=== PATIENT | female | born 1925 | race Caucasian/White ===

== ENCOUNTER 2017-09-12 15:31 | Inpatient (IN) | payer MEDICARE, OTHER ==
[~2017-09-12] VITALS: Ht 165.1 cm; Wt 85.9 kg
[~2017-09-12 15:31] MED LIST: AEROECLIPSE II1 EACH MISC; ASPIR 8181 MG PO; AUGMENTIN 875-1 EACH PO; BENICAR20 MG PO; BENZONATATE200 MG PO; CELEBREX200 MG PO; CEPACOL SORE T1 EAC5 MM; COUMADIN3 MG PO; DAILY VITAMIN1 EAC2 PO; EFFER-K 20 MEQ20 MEQ PO; FAMOTIDINE20 MG PO; FLUTICASONE PRO16 GM NAS; GABAPENTIN300 MG PO; GUAIFENESIN-CODE5 ML PO; IPRAT-ALBUT 0.5-3 ML INH; IPRATROPIU0.2 MG/1 M INH; LASIX40 MG PO; LEVOTHROID125 MCG PO; LOSARTAN POTASS50 MG PO; MAG-OXIDE400 MG PO; MELATONIN1 MG PO; MIRALAX17 GM PO; MIRAPEX0.5 MG PO; MUCINEX100 MG PO; MULTI-DAY VITA1 EACH PO; NEURONTIN300 MG PO; NORCO 5-325 TA1 EACH PO; OLMESARTAN MEDO20 MG PO; POTASSIUM CHLO20 ME1 PO; PRILOSEC20 MG PO; RESTORIL15 MG PO; SERTRALINE HCL25 MG PO; SYNTHROID125 MCG PO; TEMAZEPAM15 MG PO; TORSEMIDE20 MG PO; WARFARIN SODIUM5 MG PO; ZOLOFT50 MG PO
--- NOTE | 2017-09-12 16:00 | NUR ---
89 YEAR OLD FEMALE PATIENT ADMITTED TO CCU DIRECT ADMIT ISRAEL W/C WITH DX OF HYPO NA/HYPO K. PATIEN HAS HD AMS OVER THE LAST WEEK. HAS FALLEN TWICE OVER PAST WEEK AND HALF. IS AWARE OF PERSON, AND PLACE. DAUGHTER IS WITH PATIENT. ADMISSION PROCESS STARTED.
--- NOTE | 2017-09-12 16:50 | NUR ---
O2 APPLIED SAT AT TIME IN HIGH 80'S.
[2017-09-12] MEDS ORDERED: GABAPENTIN300 MG PO (16:58)
[2017-09-12] MEDS ORDERED: MELATONIN3 MG PO (16:59)
[2017-09-12] MEDS ORDERED: TORSEMIDE20 MG PO (17:00)
[2017-09-12] MEDS ORDERED: METOLAZONE5 MG PO (17:00)
--- NOTE | 2017-09-12 17:45 | EKG ---
[facility] [address] [facility] [place] [address] Signed Atrial fibrillation with premature ventricular or aberrantly conducted complexes Moderate voltage criteria for LVH, may be normal variant Nonspecific ST abnormality Abnormal ECG When compared with ECG of 10-DEC-2016 16:13, Atrial fibrillation has replaced Sinus rhythm QRS duration has increased Non-specific change in ST segment in Inferior leads T wave inversion more evident in Inferior leads T wave amplitude has decreased in Anterolateral leads Confirmed by ARTI HUFFMAN MD ([id number]) on 09/12/2017 5:45:36 PM Electronically Signed By: ARTI HUFFMAN MD 09/12/17 1745 PATIENT NAME: BERE MACE Electrocardiogram DATE OF : [birth year] PHYSICIAN: ARTI HUFFMAN MD REPORT #: [id number] REPORT IS CONFIDENTIAL AND NOT TO BE RELEASED WITHOUT AUTHORIZATION
--- NOTE | 2017-09-12 17:51 | NUR ---
UP TO COMMODE FOR THIRD TIME SINCE ADMIT. HAS SOME DIZZINESS WITH MOVEMENT. C/O BURNING AT IV SITE. IV KCL DECREASED TO 75 ML/HR.
--- NOTE | 2017-09-12 17:53 | NUR ---
Medications reconciled using PCP chart notes
--- NOTE | 2017-09-12 18:26 | NUR ---
UP TO COMMODE. DENIES BURNING WITH URINATION. IS UNSTEADY ON FEET.
--- NOTE | 2017-09-12 18:40 | NUR ---
converted to nsr from afib.
--- NOTE | 2017-09-12 19:03 | NUR ---
IV SITE CONT TO BURN. DR. HUFFMAN AWARE. IV K TO 60 ML/HR.
--- NOTE | 2017-09-12 19:03 | NUR ---
REPORT TO NEXT SHIFT.
--- NOTE | 2017-09-12 20:05 | NUR ---
PT CONT TO C/O ARM BURNING. ARM WRAPPED IN WARM BLANKET AND AND KCL DILUTED AT SITE BY ADDING MAINTENENCE NS. PT THEN GOT UP TO BSC TO VOID AND HAS NO LONGER C/O ARM HURTING. ABLE TO GET UP TO BSC WITH 1 PERSON ASSIST.
--- NOTE | 2017-09-12 20:42 | NUR ---
VOIDING FREQ, BLADDER SCANNED POST VOID FOR 418. HAS HX OF URINARY RETENTION. WILL WATCH.
--- NOTE | 2017-09-12 21:37 | NUR ---
DR HUFFMAN CALLED RE LABS. GIVEN UPDATE ON PT.
--- NOTE | 2017-09-12 22:32 | NUR ---
PT SITTING AT EDGE OF BED DOING PUZZLES. NO C/O EXCEPT BEING BORED.
--- NOTE | 2017-09-12 23:40 | NUR ---
PT HAD BEEN IN RECLINER SINCE ABOUT 2249, STATES IS READY TO GO TO BED. PT THEN MOTIONED TO BED AND ASKED IF IT WAS HERS.SOMETIMES WILL RESPOND SLOWLY TO QUESTIONS. ON COMMODE ON WAY BACK TO BED AND PT VOIDED 100ML. BLADDER SCANNED FOR 529ML.16 F LOWERY CATH INSERTED WITH RETURN OF DILUTE YELLO URINE. PT'S GAIT IS SLOW AND SHUFFLING AND USES FURNITURE TO STEADY SELF.
--- NOTE | 2017-09-13 02:15 | NUR ---
PT NOTED TO BE STARTING TO SIT UP. THOUGHT SHE NEEDED TO GET UP TO VOID. REMINDED OF CATHETER. PT STATES IS NOT SLEEPING. GIVEN 500MG TYLENOL PO FOR RELAXATION. LAB DRAWN.
--- NOTE | 2017-09-13 03:26 | NUR ---
DR HUFFMAN CALLED RE LABS. WILL GIVE KCL 40MEQ IV PREMIXED EARLIER BY PHARMACY.
--- NOTE | 2017-09-13 03:46 | NUR ---
NO SLEEPING, OCC THINKS NEED TO GET UP TO VOID, REMINDED OF CATHETER. GIVEN HOT COCOA.
--- NOTE | 2017-09-13 04:55 | NUR ---
CONT TO BE AWAKE, LOOKING AT CELL PHONE BUT NOT ABLE TO USE IT AT THIS TIME. STATES IS NOT GOING TO CALL ANYONE. KCL CONT TO INFUSE.
--- NOTE | 2017-09-13 05:37 | NUR ---
ASKING WHAT TIME THEY SERVE DINNER HERE. 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 GIVEN PUDDING AND CRACKERS SNACK. STATES IS NOT THE LEAST BIT SLEEPY.
--- NOTE | 2017-09-13 07:30 | NUR ---
BEDSIDE REPORT RECIEVED. DENIES PAIN. LOWERY CATH PATENT WITH CLEAR YELLOW URINE. PATIENT IS SITTING IN CHAIR.
--- NOTE | 2017-09-13 09:00 | NUR ---
TOOK BREAKFAST WELL. DENEIS NAUSEA. TO COMMODE TO PASS FLATUS. PATIENT STATES SHE FEELS CONSTIPATED. WILL TALK WITH DR. HUFFMAN ABOUT THIS. Baltazar ALEXANDER INFUSED. IVF INFUSING AT 60 ML HR.
--- NOTE | 2017-09-13 09:30 | NUR ---
DR. HUFFMAN HERE TO SEE PATIENT. FLUID RESTRICTIONS ORDERED. TALKED WITH PATIENT ABOUT THIS. FLUIDS TAKEN FROM BEDSIDE.
--- NOTE | 2017-09-13 11:23 | NUR ---
WORKING WITH PHYS THERAPY.
--- NOTE | 2017-09-13 13:16 | NUR ---
REMAINS IN CHAIR, VISITING WITH DAUGHTER.
--- NOTE | 2017-09-13 15:10 | NUR ---
TO SHOWER VIA SHOWER CHAIR. TOLERATED SHOWER WELL.
--- NOTE | 2017-09-13 18:15 | NUR ---
LOWERY CATH DC'D PER ORDERS AND EMPTIED FOR 750 ML OF CLEAR YELLOW URINE.
--- NOTE | 2017-09-13 18:58 | NUR ---
TOOK DINNER WELL. RESTLESS AT TIMES.
--- NOTE | 2017-09-13 19:25 | NUR ---
REPORT TO NEXT SHIFT. TRANSFERRED TO BED, BED ALARM IS ON.
--- NOTE | 2017-09-13 20:07 | NUR ---
PT AWAKE, ALERT BUT DISORIENTED TO PLACE AND EVENT. UP TO BSC TO PASS GAS AND VOID. REQUIRES MINIMAL ASSISTANCE GETTING OOB. STATES IS NOT TIRED.
--- NOTE | 2017-09-13 21:40 | NUR ---
PT HAS BEEN VOIDING Q 30MIN SINCE 1999. DR HUFFMAN CALLED RE LABS.
--- NOTE | 2017-09-13 23:45 | NUR ---
HAS BEEN UP IN CHAIR SINCE 2129. HAD INSISITED NEEDED TO GET DRESSED. CALMED AFTER GETTING TO CHAIR. MELATONIN GIVEN 2314. PT TO COMMODE TO VOID AND HAVE SMALL BM.
--- NOTE | 2017-09-14 00:10 | NUR ---
IN BED, LAB IN TO DRAW BLOOD.
--- NOTE | 2017-09-14 01:26 | NUR ---
UP TO BSC TO VOID. WHEN VOIDING AT TIMES VOIDS FAIR AMT THIS TIME 50ML. IV SITE NOTED TO BE LEAKING, DC'D AND REPLACED. PT DENIES NEED TO VOID AT THIS TIME.
--- NOTE | 2017-09-14 01:31 | NUR ---
DR HUFFMAN CALLED WITH LABS. WILL GIVEN 40MEQ KCL PO NEXT TIME AWAKE.
--- NOTE | 2017-09-14 03:42 | NUR ---
PT SLEPT FOR ABOUT 1 HR. UP TO COMMODE THEN SAT ON EDGE OF BED AND NOW TO CHAIR. PT WANTED TO GO OUTSIDE AND DID NOT KNOW WAS IN THE HOSPITAL. WANTS TO GET DRESSED. EXPLAINED DAUGHTER TOOK CLOTHES HOME. IN CHAIR LOOKING AT MAGAZINE.
--- NOTE | 2017-09-14 05:48 | NUR ---
PT SLEPT FOR ABOUT 1HR IN CHAIR. UP TO VOID, BACK TO CHAIR.
--- NOTE | 2017-09-14 06:12 | NUR ---
DR HUFFMAN CALLED RE LABS. WILL GIVE 1,200ML D5 OVER 90MIN.
--- NOTE | 2017-09-14 06:42 | NUR ---
PT TELEPHONED DAUGHTER , TELLING HER SHE WAS AT THE [facility] AND WAS READY TO GO HOME. PT HAS EXPRESSED SEVERAL TIMES DURING NIGHT SHE WANTED TO GO HOME. DAUGHTER CALLED NURSE, WAS INFORMED THAT PT'S CONFUSION INCREASES DURING THE NIGHT. DAUGHTER STATED SHE WOULD BE UP LATER TO SEE PT. PT UP TO VOID. D5 INFUSING.
--- NOTE | 2017-09-14 06:49 | NUR ---
CHECKED ON PT-SULMA ONE OF HER SONS WAS IN WITH HER. HE EXPRESSEED A DESIRE TO VISIT WITH GARRETT-JESUS WILL LEAVE HER A MSG. I LET THEM VISIT, I WILL CONTINUE TO FOLLOW
--- NOTE | 2017-09-14 06:59 | NUR ---
PT SITTING IN CHAIR, ENJOYING THE COMPANY OF 2 FRIENDS FROM HER [place]. I SAID ALAN, KNEW THEY NEEDED TIME TOGETHER. WILL CONTINUE TO FOLLOW. EXTENDED A BLESSING
--- NOTE | 2017-09-14 07:30 | NUR ---
PT SITTING IN CHIAR, REQUESTS TO GET UP TO BEDSIDE COMMODE. PT ABLE TO VOID AND HAVE BM. PT THEN BACK TO BED WITH WALKER AND STAND BY ASSIST. PT THEN ORDERED BREAKFAST.
--- NOTE | 2017-09-14 08:00 | NUR ---
PT WASHED HANDS AND FACE PRIOR TO BREAKFAST. RN WASHED PT GLASSES. BREAKFAST ARRIVED, PT HAS GOOD APPITITE. LAB IN ROOM TO DRAW BLOOD.
--- NOTE | 2017-09-14 08:28 | NUR ---
PT USEING CALL LIGHT APPROPRIATELY, UP TO BEDSIDE COMMODE TO VOID. PT DENIES PAIN, SOB, AND NAUSEA AT THIS TIME. PT THEN BACK TO BED, FINISHING BREAKFAST.
--- NOTE | 2017-09-14 09:27 | NUR ---
PATIENT UP TO BSC ONE PERSON ASSIST WITH FWW THEN BACK TO CHAIR. PATIENT DID WELL TRANSFERING STEADY WITH WALKER. ORAL CARE DONE. LINENS CHANGED. CHAIR ALARM ON. WARM BLANKET. CALL BUTTON IN REACH. NO OTHER NEEDS AT THIS TIME.
--- NOTE | 2017-09-14 13:19 | NUR ---
PT ATE 100% OF LUNCH, RETURNED TO BED WITH 1 PERSON ASSIST. ASSESSMENT COMPLETED. PT SLEEPING WITH REU.
--- NOTE | 2017-09-14 13:49 | NUR ---
PT SITTING IN CHAIR, ALERT AND ORIENTED. SHE WAS PLEASANT, MENTIONED THAT SHE WAS ABLE TO SLEEP LAST NIGHT AND THAT HELPED HER FEEL BETTER. SEEMS A LITTLE UNSURE ABOUT HER PLAN OF TREATMENT. REQUESTED PRAYER, PT IS TO BE MOVED TO [facility] LATER TODAY-IMPROVEMENT. SHE ALSO REQUESTED I CONTACT HER COMMUNICATIONS ASSISTANT AND NOTIFY HIM SHE IS HERE. I LEFT A MSG
--- NOTE | 2017-09-14 14:07 | NUR ---
REPORT GIVEN TO BILLY Encarnacion PT AWAKE AND UP TO BSC WITH 2 PERSON ASSIST, VOIDED 250 MLS CLEAR YELLOW URINE. PT USED WALKER WITH STANDBY ASSIST TO AMBULATE TO SANTOS CHAIR. PT RESTING IN SANTOS CHAIR.
--- NOTE | 2017-09-14 15:13 | NUR ---
PATIENT FROM THE CCU. VITALS TAKEN. ASSISTED TO THE BR. ASSISTED TO BED. BED ALARM IN PLACE. PATIENT IS ORIENTED AAOX3. TOLERATING INSTRUCTIONS WELL.
--- NOTE | 2017-09-14 15:46 | NUR ---
PATIENT SLEEPING IN BED ON R SIDE. RR EVEN AND UNLABROED. BED ALARM IN PLACE.
--- NOTE | 2017-09-14 16:04 | NUR ---
PATIENT AMBULATED IN MARTHA WITH THREE POINT WALKER. TOLERATING AMBULATING WELL WITH ASSISTANCE. FOLLOWING DIRECTIONS AT THIS TIME.
--- NOTE | 2017-09-14 16:32 | NUR ---
PATIENT ASSISTED TO THE BR WITH ONE ASSIST AND WALKER. TOLERATING WELL. SAT IN CHIAR WITH SNACK. CHAIR ALARM IN PLACE.
--- NOTE | 2017-09-14 17:10 | NUR ---
PATIENT SITTING UP IN CHAIR WITH DINNER. NO NEEDS AT THIS TIME. CALL BUTTON IN REACH. CHAIR ALARM ON.
--- NOTE | 2017-09-14 17:51 | NUR ---
PATIENT TOLERATED DINNER. EATING 100 PERCENT. LEGS OF CHAIR BROUGHT UP. WARM BLANKET GIVEN. PATIENT CONTINUES TO BE ORIENTED AT THIS TIME. CHAIR ALARM IN PLACE.
--- NOTE | 2017-09-14 17:52 | NUR ---
PATIENT CCU TRANSFER THIS AFTERNOON. PATIENT FORGETFUL AT TIMES. ORIENTED FOR ME ON SHIFT. WAS REPORTED THAT CAN GET CONFUSED AT NIGHT. SL. LABS IN AM. BED ALARM AND CHAIR ALARM. ONE ASSIST WITH WALKER WHEN AMBULATING TO BR. WORKING WITH PT AND OT.
--- NOTE | 2017-09-14 20:00 | NUR ---
RECEIVED REPORT AT 1900. FOUND PT IN BED AWAKE WATCHING TV. PT DENIED PAIN AND DID NOT HAVE ANY OTHER COMPLAINTS AT THAT TIME. PT WAS ALERT AND ORIENTED X4.
--- NOTE | 2017-09-14 20:28 | NUR ---
PATIENT IN BATHROOM, NURSE IN ROOM. PATIENT NOW BACK IN CHAIR, WITH CHAIR ALARM ON. WHITEBOARD UPDATED, ROOM TIDIED. ICE WATER REFILLED. PATIENT DOES NOT NEED ANYTHING AT THIS TIME.
--- NOTE | 2017-09-14 22:13 | NUR ---
V/S OVERALL ARE WDL. PT WAS FEBRILE AT 99.5 AT SHIFT CHANGE. PT IS AFEBRILE AT THIS TIME. PT IS ORIENTED X4 SO FAR. BED ALARM IS ON. ALL LOBES ARE CLEAR. BILATERAL ANKLE EDEMA +1 NOTED. PT DENIES PAIN AND SOB AT THIS TIME. ALL QUADRANTS HAVE NORMAL ACTIVE BOWEL TONES.PT STILL HAS URGENCY WHEN URINATING AND THEN IS UNABLE TO GO ONCE SITTING ON THE TOILET. NO OTHER ISSUES NOTED SO FAR.
--- NOTE | 2017-09-15 00:15 | NUR ---
PT AT THIS TIME IS UP IN CHAIR AT THIS TIME. PT DID RECEIVE SCHEDULED MELATONIN BUT SO FAR HAS BEEN UNABLE TO SLEEP. CHAIR ALARM IS ACTIVE.
--- NOTE | 2017-09-15 00:18 | NUR ---
NURSES IN ROOM.
--- NOTE | 2017-09-15 02:10 | NUR ---
PT IS SLEEPING IN BED AT THIS TIME.
--- NOTE | 2017-09-15 02:10 | NUR ---
PATIENT ASLEEP. DOES NOT NEED ANYTHING AT THIS TIME.
--- NOTE | 2017-09-15 03:34 | NUR ---
PT IS AWAKE IN BED. PT IS ORIENTED X4 AT THIS TIME. PT SEEMS RESTLESS THOUGH. PT HAS ONLY SELPT FOR ABOUT 2HRS SO FAR. ALL LOBES ARE CLEAR, PT DENIES PAIN. OVERALL THERE ARE NO CHANGES WITH THIS PT SO FAR.
--- NOTE | 2017-09-15 04:26 | NUR ---
PATIENT DOING FINE. DOES NOT NEED ANYTHING AT THIS TIME.
--- NOTE | 2017-09-15 04:49 | NUR ---
ASSISTED NURSE WITH INSERTING LOWERY CATHETER PATIENT WAS RETAINING URINE IN HER BLADDER.
--- NOTE | 2017-09-15 04:51 | NUR ---
AROUND 0400 PT VOIDED 200ML. PVR WAS 427ML ACCORDING TO BLADDER SCAN. MD HUFFMAN WAS CALLED SINCE PT HAS BEEN HAVING RETENTION ISSUES SINCE ADMISSION. I RECEIVED AN ORDER FOR A LOWERY. LOWERY INSERTED AT 0445 INITIAL OUTPUT WAS 350ML.
--- NOTE | 2017-09-15 05:40 | NUR ---
OVERALL V/S HAVE BEEN WDL.ONE EXCEPTION WAS HER TEMP OF 99.5 AT START OF SHIFT. PT HAD ISSUES WITH URINARY RETENTION THROUGHOUT THIS SHIFT. AROUND 0400 PT VOIDED 200ML AND HAD PVR OF 427ML. MD HUFFMAN WAS CALLED AND A LOWERY WAS ORDERED AND PLACED. PT HAS BEEN ALERT AND ORIENTED X4 ALL SHIFT SO FAR. PT HAS HAD TROUBLE SLEEPING THOUGH. 3MG OF SCHEDULED MELATONIN WAS GIVEN. PT HAS +1 EDEMA IN BOTH ANKLES, DORSALIS PEDIS BILATERALLY ARE +1. ALL LOBES ARE CLEAR. NO OTHER ISSUES NOTED SO FAR.
--- NOTE | 2017-09-15 07:39 | NUR ---
RECIEVED REPORT FROM DAY SHIFT NURSE. PT RESTING IN BED. SEBASTIÁN NOTED. DENIES NEEDS. BED ALARM ON. CALL MULLINS IN REACH.
--- NOTE | 2017-09-15 08:46 | NUR ---
PT SITTING UP IN CHAIR. REMOVED MEAL TRAY. PT ATE ABOUT 50%. LOWERY IN PLACE DRAINING PALE YELLOW URINE. PT STATES SHE FEELS LIKE SHE HAS TO VOID. ENCOURAGED PT TO CHANGE POSITIONS AND RELAX HER MUSCLES. PT ORIENTED TO SELF AND PLACE. PT DID NOT KNOW YEAR BUT KNEW IT IS AUGUST. PT DENIES FURTHER NEEDS. PEG ALARM IN PLACE. CALL MULLINS IN REACH.
--- NOTE | 2017-09-15 09:07 | NUR ---
PT UP IN BED. GOT PT UP IN CHAIR. AM CARE. TOOK BREAKFAST TRAY. LINEN CHANGE. PICKED UP ROOM. EMPTYED GARBAGE.
--- NOTE | 2017-09-15 09:30 | NUR ---
PT SLEEPING IN CHAIR. PEG ALARM IN PLACE. CALL MULLINS IN REACH.
--- NOTE | 2017-09-15 10:10 | NUR ---
PT SLEEPING UP IN CHAIR. PEG ALARM ON. CALL MULLINS IN REACH.
--- NOTE | 2017-09-15 10:24 | NUR ---
PT DOING WELL. FRESH ICE WATER AND COFFEE
--- NOTE | 2017-09-15 11:52 | NUR ---
REMOVED LOWERY. OBTAINED UA AND SENT TO LAB. PT UP IN CHAIR. DENIES NEEDS. IN TO SEE PT.
== END 2017-09-15 11:50 | disposition swing bed (61) | DRG 640 ==
LOC: CCU 15:31 → MS 09-14 14:50
PROVIDERS: ADMIT Internal Medicine
DX: E87.1 Hypo-osmolality and hyponatremia (principal); G93.41 Metabolic encephalopathy; I50.32 Chronic diastolic (congestive) heart failure; I48.0 Paroxysmal atrial fibrillation; R53.81 Other malaise; E03.9 Hypothyroidism, unspecified; G25.81 Restless legs syndrome; G62.9 Polyneuropathy, unspecified; I11.0 Hypertensive heart disease with heart failure; T50.2X5A Adverse effect of carbonic-anhydrase inhibitors, benzothiadiazides and other diuretics, initial encounter; E87.6 Hypokalemia
CPT/HCPCS: 36415; 51702; 51798; 80048; 81001; 83735; 83930; 83935; 84550; 87088; 93005; 93010; 94760; 97110; 97161; J1650; J3480; J7030; J7060; J7070

== ENCOUNTER 2017-09-15 11:50 | Inpatient (IN) | payer MEDICARE, OTHER ==
[~2017-09-15] VITALS: Ht 165.1 cm; Wt 84.7 kg
[~2017-09-15 11:50] MED LIST changes: +MELATONIN3 MG PO; +METOLAZONE5 MG PO
--- NOTE | 2017-09-15 12:32 | NUR ---
PT RESTING UP IN CHAIR WITH FRIENDS IN THE ROOM. PT HAVING LUNCH AT THIS TIME. DENIES NEEDS. CALL MULLINS IN REACH.
--- NOTE | 2017-09-15 13:10 | NUR ---
ASSISTED PT TO BATHROOM HOWEVER SHE STATES SHE DOES NOT FEEL LIKE SHE HAS TO VOID. PT UNABLE TO VOID. BACK TO BED. STATES SHE WOULD LIKE TO TAKE A NAP. REMOVED MEAL TRAY, PT ATE 100%. BED ALARM ON. CALL MULLINS IN REACH.
--- NOTE | 2017-09-15 14:15 | NUR ---
PT RESTING IN BED. DENIES PAIN. ALERT AND ORIENTED. PT DOES NOT REMEMBER WHY SHE INITIALLY CAME TO THE HOSPITAL. LUNGS CLEAR IN THE UPPER LOBES, COURSE CRACKLES HEARD IN THE LOWER LOBES. HR REG. TRACE EDEMA BILAT ANKLES. PT HAS VOIDED 200CC SINCE THE CATHETER WAS D/C THIS MORNING AT 1152. PT ALSO HAD A BM TODAY. NO C/O PAIN. PT IS FORGETFUL. BED ALARM. ENCOURAGE INCENTIVE SPIROMETER. CALL MULLINS IN REACH.
--- NOTE | 2017-09-15 14:40 | NUR ---
PT WORKING WITH PT.
--- NOTE | 2017-09-15 14:53 | NUR ---
PT UP TO BATHROOM WITH ASSISTANCE.
--- NOTE | 2017-09-15 15:43 | NUR ---
PT TO BATHROOM WITH ASSISTANCE.
--- NOTE | 2017-09-15 16:41 | NUR ---
ASSISTED PT TO BATHROOM. PT VOIDING PALE YELLOW URINE. BACK TO CHAIR. PEG ALARM IN PLACE. CALL MULLINS IN REACH.
--- NOTE | 2017-09-15 17:11 | NUR ---
PT SWING BED TODAY. INITIALLY ADMITTED ON 09/12. PT DID NOT SLEEP WELL LAST NIGHT. DAUGHTER STATES PT DOES NOT SLEEP WELL AT HOME EITHER.LOWERY D/C TODAY. VOIDING FREQUENTLY. UA OBTAINED-WBC IN URINE-STARTED ON KEFLEX. BASILAR CRACKLES AUSCULTATED. NO C/O PAIN.
--- NOTE | 2017-09-15 18:00 | NUR ---
ASSISTED PT WITH BED BATH. PT DENIES FURTHER NEEDS. UP IN CHAIR, PEG ALARM IN PLACE.
--- NOTE | 2017-09-15 18:54 | NUR ---
PT GIVEN WARM BLANKET AND CALL LIGHT. BED ALARM SET. CALL LIGHT IN PLACE. GIVEN FRESH ICE WATER AND NOTIFIED TO CALL NURSE IF NEEDED.
--- NOTE | 2017-09-15 20:00 | NUR ---
RECEIVED REPORT AT 1900. FOUND PT IN BED ALERT READING A MAGAZINE.
--- NOTE | 2017-09-15 21:47 | NUR ---
ASSISTED PATIENT TO THE RESTROOM. PATIENT IS A SBA W/FWW. PATIENT IS NOW SITTING IN THE CHAIR. CHAIR ALARM IN PLACE. CALL LIGHT IN REACH. NO QUESTIONS COMMENTS OR CONCERNS.
--- NOTE | 2017-09-15 22:00 | NUR ---
V/S ARE WDL, PT DENIES PAIN. PT SEEMS STRONGER OVERALL, ALL LOBES ARE CLEAR, BOWEL TONES ARE NORMAL, PT HAS TROUBLE SLEEPING, 3MG OF MELATONIN WAS GIVEN. PT HAS BEEN CALLING APPROPRIATELY SO FAR. PT STATED TO DAY SHIFT THAT SHE WANTS TO BE A DNR AND POSSIBLE A DNI.
--- NOTE | 2017-09-16 | NUR ---
PT IS AWAKE IN BED. PT STILL HAS URGENCY AND FREQUENCY FAR URINATION IS CONCERNED.
--- NOTE | 2017-09-16 02:15 | NUR ---
PT IS AWAKE IN BED. PT HAS GONE TO BATHROOM MANY TIMES THIS SHIFT WITHOUT ANY SIGNIGFICANT OUTPUT WHEN URINATING.
--- NOTE | 2017-09-16 04:00 | NUR ---
PT IS SLEEPING IN CHAIR AT THIS TIME.
--- NOTE | 2017-09-16 06:19 | NUR ---
V/S ARE WDL. PT DID NOT SLEEP VERY MUCH ONCE MORE SINCE SHE HAD TO GET UP ABOUT EVERY HOUR TO URINATE. PT IS ALERT AND ORIENTED X4, PT HAS CALLED APPROPTIATELY ALL SHIFT. ALL LOBES ARE CLEAR, MINIMAL BILATERAL LOWER LEG EDEMA IS STILL PRESENT. PT OVERALL IS STRONGER. NO NEW ISSUES NOTED THIS SHIFT.
--- NOTE | 2017-09-16 07:08 | NUR ---
RECIEVED BEDSIDE REPORT FROM JESUS DAMON. PT SLEEPING IN BED, BREATHING EVEN AND UNLABORED. BED ALARM ON.
--- NOTE | 2017-09-16 11:23 | NUR ---
PATIENT GOT A SHOWER THIS MORNING DID MOST OF THE WASHING.
--- NOTE | 2017-09-16 11:24 | NUR ---
PATIENT GOT A WARM BLANKET AND FILLED UP HER ICE WATER CUP AND GOT HER A COMB.
--- NOTE | 2017-09-16 12:53 | NUR ---
PT UP TO BATHROOM MULTIPLE TIMES. VOIDING WELL.
--- NOTE | 2017-09-16 13:30 | NUR ---
PT SLEEPING SOUNDLY, BREATHING EVEN AND UNLABORED. PT HAD A VISITOR COME BY, BUT DID NOT WAKE UP.
--- NOTE | 2017-09-16 14:25 | NUR ---
PT LAYING IN BED, MENTIONED THAT SHE WANTED LME TO PRAY FOR HER. SHE ASKED FOR CLARITY "IN HER HEAD" AND SHE REALLY CAN GO HOME. SHE THANKED ME FOR STOPPING.
--- NOTE | 2017-09-16 17:44 | NUR ---
PT UP TO VOID WITH 1 PERSON ASSIST AND FWW MULTIPLE TIMES THIS SHIFT. VOIDING QS EACH TIME. PT REPORTS NO PAIN, NAUSEA. PT EATING AND DRINKING WELL. TRACE EDEMA IN BILAT LOWER LEGS.
--- NOTE | 2017-09-16 20:00 | NUR ---
RECEIVED REPORT AT 1900. FOUND PT IN BED READING. PT HAD NO COMPLAINTS.
--- NOTE | 2017-09-16 21:26 | NUR ---
PATIENTS IV ACCESS IS NO LONGER PATIENT. GAVE PERMISSION TO LEAVE IV OUT A THIS TIME.
--- NOTE | 2017-09-16 21:42 | NUR ---
ROUNDED CHARGE. ASSISTED PATIENT TO THE RESTROOM. PATIENT IS A SBA AND IS STEADY ON HER FEET. PATIENT WAS BALE TO VOID A SMALL AMOUNT. PATIENT IS BACK IN BED RESTING. PATIENT EXPRESSES CONCERN ABOUT WHEN SHE WILL GET TO GO HOME. REASSURED PATIENT THAT SHE IS DOING WELL. AND WHEN IT IS SAFE FOR HER TO GO THE MD WILL DISCHARGE HER. PATIENT DENIES ANY FURTHER CONCERNS.
--- NOTE | 2017-09-16 22:00 | NUR ---
V/S ARE WDL. ALL LOBES ARE CLEAR, ABD SOUNDS ARE PRESENT IN ALL QUADRANTS, PT LOST IV ACCESS, LINE WAS NO LONGER PATENT. MD HUFFMAN IS AWARE. PT DENIES PAIN AND IS AAO X4. NO NEW ISSUES NOTED SO FAR. PT IS IN BED TRYING TO SLEEP.
--- NOTE | 2017-09-16 23:57 | NUR ---
PT AT THIS TIME IS SLEEPING
--- NOTE | 2017-09-17 02:05 | NUR ---
PT IS STILL SLEEPING AT THIS TIME.
--- NOTE | 2017-09-17 04:08 | NUR ---
PT IS STILL SLEEPING.
--- NOTE | 2017-09-17 05:05 | NUR ---
V/S ARE WDL, ASSESSMENT OVERALL HAS FOUND NO NEW ISSUES. PT HAS BEEN SLEEPING ALL NIGHT AND IS STILL SLEEPING.
--- NOTE | 2017-09-17 05:07 | NUR ---
V/S ARE WDL, PT LOST IV ACCESS AT START OF SHIFT. MD HUFFMAN IS AWARE. PT HAS NO IV ACCESS AT THIS TIME. ASSESSMENT WAS WITHOUT CHANGES. PT HAS BEEN SLEEPING ALL SHIFT AND IS STILL SLEEPING.
--- NOTE | 2017-09-17 07:01 | NUR ---
RECIEVED BEDSIDE REPORT FROM JESUS DAMON. PT SLEPT ALL NIGHT AND IS SLEEPING WELL, BREATHING EVEN AND UNLABORED.
--- NOTE | 2017-09-17 07:34 | NUR ---
PATIENT UP IN CHAIR, WATCHING TV. WHITEBOARD UPDATED, ROOM TIDIED. NURSE IN ROOM CURRENTLY TAKING PATIENT BACK FROM BATHROOM.
--- NOTE | 2017-09-17 12:21 | NUR ---
PATIENT ATE LUNCH, IS DOING WELL.
--- NOTE | 2017-09-17 13:53 | NUR ---
WENT IN TO CHECK ON PATIENT. UP IN CHAIR, ORIENTED, WATCHING TV. STATES SHE DOES NOT NEED ANYTHING AT THIS MOMENT. REMINDED HER TO CALL IF SHE NEEDS ANYTHING AT ALL.
--- NOTE | 2017-09-17 14:29 | NUR ---
PT SLEEPING IN CHAIR, BREATHING EVEN AND UNLABORED. PT APPEARS COMFORTABLE.
--- NOTE | 2017-09-17 16:35 | NUR ---
PATIENT DOING WELL. NURSE IN ROOM.
--- NOTE | 2017-09-17 18:42 | NUR ---
PT UP TO CHAIR AND RESTING IN BED. VOIDING QS AND VERY FREQUENTLY. PT STATES SHE FEELS IT IS IMPROVED. NO BM THIS SHIFT. WORKED WITH PT/OT. UP FOR MEALS.
--- NOTE | 2017-09-17 19:50 | NUR ---
RECEIVED REPORT FROM DAY SHIFT RN. PATIENT IS RESTING IN BED WATCHING TV. PATIENT DENIES ANY NEEDS. CALL LIGHT IN REACH.
--- NOTE | 2017-09-17 20:15 | NUR ---
PATIENT ASSESMENT COMPLETED. PATIENT ASSISTED TO THE RESTROOM. PATIENT IS A SBA W/FWW AND DOES WELL WITH AMBULATION. PATIENTS EVENING MEDICATIONS GIVEN PER ORDER. PATIENT DENIES ANY NEEDS A THIS TIME. PATIENT IS AAOX3. CALL LIGHT IN REACH.
--- NOTE | 2017-09-17 22:30 | NUR ---
PATIENT CALLED AND REQUESTED HER LIGHT TO BE TURNED OFF. NO FURTHER NEEDS AT THIS TIME. CALL LIGHT IN REACH.
--- NOTE | 2017-09-18 00:44 | NUR ---
PATIENT IS RESTING IN BED WITH EYES CLOSED. PATIENTS BREATHING IS EVEN AND UNLABORED, RR 17
--- NOTE | 2017-09-18 03:19 | NUR ---
PATIENT IS RESTING IN BED WITH EYES CLOSED. BREATHING IS EVEN AND UNLABORED, RR 17
--- NOTE | 2017-09-18 03:49 | NUR ---
PATIENT ASSISTED TO THE RESTROOM. PATIENT IS A SBA W/FWW. PATIENT IS NOW RESTING IN THE RECLINER. CALL LIGHT IN REACH. NO FURTHER NEEDS.
--- NOTE | 2017-09-18 04:24 | NUR ---
PATIENT RESTED WELL THROUHGOUT THE SHIFT. PATIENT IS A SBA W/FWW AND IS STEADY ON HER FEET. PATIENT IS ON A CARDIAC DIET AND IS TOLERATING IT WELL, NO COMPLAINTS OF NAUSEA. PATIENT HAS NO IV AT THIS TIME. PATIENT IS [id number] AND USES CALL LIGHT APPROPRIATLEY.
--- NOTE | 2017-09-18 06:15 | NUR ---
PATIENT GIVEN FRESH ICE WATER PER ORDER. PATIENT GIVEN MORNING MEDICATIONS PER ORDER. PATIENT DENIES ANY PAIN. PATIENT DENIES ANY NEEDS AT THIS TIME. CALL LIGHT IN REACH.
--- NOTE | 2017-09-18 07:46 | NUR ---
RECIEVED BEDSIDE REPORT FROM JESUS RODRIGUEZ. PT UP TO CHAIR WITH HOT CHOCOLATE. PT TO BATHROOM.
--- NOTE | 2017-09-18 15:47 | NUR ---
PATIENT DOING WELL. DOES NOT NEED ANYTHING AT THIS TIME.
--- NOTE | 2017-09-18 18:25 | NUR ---
PT UP AMBULATING IN HALLS WITH PHYSICAL THERAPY. PT ENJOYED FAMILY AND FRIEND VISITS. FREQUENT URINATION, HOWEVER, PT STATES IT IS GETTING BETTER. NO IV ACCESS, TOLERATING REG DIET AND THIN LIQUIDS WELL. PT IS SBA WITH WALKER AT THIS TIME.
--- NOTE | 2017-09-18 20:00 | NUR ---
PT UP USING BATHROOM WITH SBA. THOUGHT IT WAS BREAKFAST TIME, SAID SHE WOULD "BRUSH HER TEETH AFTER BREAKFAST". ORIENTATED TO TIME, ASKED IF SHE WANTED A SNACK, SHE SAID SHE WASN'T HUNGRY. WOULD GO BACK TO BED. AMBULATION, STABLE, WITH SBA.
--- NOTE | 2017-09-18 21:15 | NUR ---
HS CARES DONE WITH ASSIST, PT IN GOOD SPIRITS, READY FOR BED. HS MEDS GIVEN, C/O FEELING ACHY, TYLENOL GIVEN, ASSISTED INTO BED. CALL LIGHT IN EASY REACH. DENIES FURTHER NEEDS.
--- NOTE | 2017-09-18 23:27 | NUR ---
PT LAYING ON HER RIGHT SIDE, EYES CLOSED, RESP EVEN AND UNLABORED.
--- NOTE | 2017-09-19 01:11 | NUR ---
PT CONTINUES TO LAY ON HER LEFT SIDE, FEET MOVING SLIGHTLY. CALL LIGHT WITHIN REACH.
--- NOTE | 2017-09-19 04:23 | NUR ---
PT LAYING ON HER BACK, EYES CLOSED, RESP EVEN AND UNLABORED.
--- NOTE | 2017-09-19 06:21 | NUR ---
PT DENIED DISCOMFORT THIS SHIFT, SBA TO BATHROOM SEVERAL TIMES. STATES SHE FEELS MUCH BETTER COMPARED TO HER ADMISSION. BELIEVES SHE WILL BE "GOING HOME TODAY".
--- NOTE | 2017-09-19 06:44 | NUR ---
PT UP IN CHAIR, HAS ORDERED BREAKFAST. DOING HER PUZZLES, OFFERERS NO COMPLAINTS OR NEEDS AT THIS TIME. CALL LIGHT WITHIN REACH.
--- NOTE | 2017-09-19 08:04 | NUR ---
PATIENT RESTING IN CHAIR WITH EYES CLOSED.
--- NOTE | 2017-09-19 08:26 | NUR ---
ANSWERED CALL LIGHT TOOK HER TO BATHROOM. PATIENT DID HER AM CARE.
--- NOTE | 2017-09-19 09:54 | NUR ---
PT SITTING UP IN RECLINER. DENIES PAIN OR DISCOMFORT. GAVE AM MEDICATIONS. PT DENIED OTHER NEEDS AT THIS TIME.
--- NOTE | 2017-09-19 10:07 | NUR ---
PATIENT SITTING UP IN CHAIR READING. CALL BUTTON IN REACH. FRESH ICE WATER GIVEN. PATIENT REFUSED SHOWER. PATIENT STATES THAT "THEY JUST WASHED ME UP". HANDS AND FACE WASHED. NO OTHER NEEDS AT THIS TIME.
[2017-09-19] MEDS ORDERED: TORSEMIDE20 MG PO (10:27)
[2017-09-19] MEDS ORDERED: POTASSIUM CHLO20 ME1 PO (10:27)
[2017-09-19] MEDS ORDERED: NYSTOP60 GM TOP (10:29)
--- NOTE | 2017-09-19 11:00 | NUR ---
GAVE PT DISCHARGE INSTRUCTIONS. QUESTIONS ASKED AND ANSWERED, PT VERBALIZED UNDERSTANDING. CALLED PT'S DAUGHTER TO REQUEST THAT SHE COME TO GIVE PT RIDE HOME TO [facility].
--- NOTE | 2017-09-19 12:23 | NUR ---
PT SITTING IN WHEEL CHAIR, WAITING TO BE TAKEN TO CAR. SHE SEEMED EXCITED TO BE DC'D AND THANKED ME FOR VISITING HER
--- NOTE | 2017-09-19 18:18 | NUR ---
ORDER AND CLINICALS FAXED TO [facility] DEPART[facility]. FAX CONFIRMATION RECEIVED.
== END 2017-09-19 11:50 | disposition home or self-care (01) | DRG 948 ==
LOC: MS 11:50
PROVIDERS: ADMIT Internal Medicine
DX: R53.81 Other malaise (principal); I50.32 Chronic diastolic (congestive) heart failure; I11.0 Hypertensive heart disease with heart failure; G25.81 Restless legs syndrome; E03.9 Hypothyroidism, unspecified; Z86.711 Personal history of pulmonary embolism; K21.9 Gastro-esophageal reflux disease without esophagitis; G62.9 Polyneuropathy, unspecified; M54.9 Dorsalgia, unspecified
CPT/HCPCS: 97110; 97116; 97162; 97165; J1650